=== PATIENT | female | born 1995 | race African-American/Black ===

== ENCOUNTER 2016-07-19 14:36 | Emergency (ER) | payer OTHER ==
[~2016-07-19] VITALS: Ht 154.9 cm; Wt 50.0 kg
[~2016-07-19 14:36] MED LIST: IBUP600 PO; NIFE1TAB85 PO; OXYC1SOL5 PO; PERI8.6T PO
[2016-07-19 14:38] VITALS: BP 141/68; PULSE 78; RESP 16; TEMP 98.2; O2SAT 98
[2016-07-19 17:37] LABS: BACTERIA, URINE MANY /hpf; BLOOD, URINE MOD (NEG); COMMENT (UR) CULTURE INDICATED; CULTURE IF INDICATED CULTURE INDICATED; GLUCOSE,URINE NEG (NEG); KETONE, URINE TRACE mg/dL (NEG); MUCUS URINE MANY /lpf (OCC); NITRITE,URINE POS (NEG); PH, URINE 5.5 (5.0-8.5); SQUAMOUS EPITHELIAL CELL URINE 9 /hpf (0-5); URINE COLOR YELLOW (YELLW/STRAW)
[2016-07-19] MEDS ORDERED: CEPH-460 PO (18:26)
--- NOTE | 2016-07-19 18:27 | PD ---
HPI Chief Complaint: Complaint Time Seen by Provider: 17:30 Travel History International Travel<30 days: No Contact w/Intl Traveler<30days: No Traveled to known affect area: No History of Present Illness HPI 20 year-old woman presents to the emergency department complaining of lower abdominal discomfort is worse after she urinates. She never really have any dysuria. Skin ongoing for the past week or so. She's noticed some dark color urine but no other urinary changes. She has had some intermittent vaginal spotting and vaginal discharge. Last initial period was July 05. She sexually active with one male partner. She otherwise has been feeling generally well and healthy. No other complaints. History Past Medical History Medical History: Denies Significant Hx Tetanus Vaccination: < 5 Years : 3 Para: 0 Social History Alcohol Use: No Tobacco Use: No Allergies-Medications (Allergen,Severity, Reaction): Coded Allergies: Flagyl (Verified Adverse Reaction, Intermediate, hives, 07/19/16) Reported Meds & Prescriptions Reported Meds & Active Scripts Active No Active Prescriptions or Reported Medications Review of Systems Except as stated in HPI: all other systems reviewed are Neg Physical Exam Narrative GENERAL: Well-appearing 20 year-old woman, no acute distress. SKIN: Focused skin assessment warm/dry. CARDIOVASCULAR: Regular rate and rhythm. No murmur appreciated. RESPIRATORY: No accessory muscle use. Clear to auscultation. Breath sounds equal bilaterally. GASTROINTESTINAL: Abdomen soft, non-tender, nondistended. Hepatic and splenic margins not palpable. MUSCULOSKELETAL: No obvious deformities. No clubbing. No cyanosis. No edema. NEUROLOGICAL: Awake and alert. No obvious cranial nerve deficits. Motor grossly within normal limits. Normal speech. PSYCHIATRIC: Appropriate mood and affect; insight and judgment normal. GENITOURINARY: Normal external genitalia without lesions or erythema. Vaginal vault without blood or drainage. Cervical os was closed without drainage. No cervical motion tenderness. Uterus nontender and nonenlarged. Bilateral adnexa nontender without masses. Data Data Last Documented VS Vital Signs Date Time Temp Pulse Resp B/P Pulse Ox O2 Delivery O2 Flow Rate FiO2 07/19/16 14:38 98.2 78 16 141/68 98 Orders Urinalysis - C+S If Indicated (07/19/16 17:20) Ed Urine Pregnancytest Poc (07/19/16 17:20) Urine Culture (07/19/16 17:25) Gc And Chlamydia Pcr (07/19/16 17:46) Wet Prep Profile (07/19/16 17:46) Labs Laboratory Tests Test 07/19/16 07/19/16 17:25 17:55 Urine Color YELLOW Urine Turbidity HAZY Urine pH 5.5 Urine Specific [place] 1.023 Urine Protein 30 mg/dL Urine Glucose (UA) NEG mg/dL Urine Ketones TRACE mg/dL Urine Occult Blood MOD Urine Nitrite POS Urine Bilirubin NEG Urine Urobilinogen LESS THAN 2.0 MG/DL Urine Leukocyte Esterase LARGE Urine RBC 20 /hpf Urine WBC 172 /hpf Urine Squamous Epithelial 9 /hpf Cells Urine Bacteria MANY /hpf Urine Mucus MANY /lpf Microscopic Urinalysis Comment CULTURE INDICATED Clue Cells (Wet Prep) PRESENT Vaginal Trichomonas (Wet Prep) PRESENT Vaginal Yeast (Wet Prep) NONE SEEN MDM Medical Decision Making Medical Screen Exam Complete: Yes Emergency Medical Condition: Yes Interpretation(s) UA: Pyuria, hematuria, many bacteria, positive nitrites. Wet prep positive for clue cells, and Trichomonas. Differential Diagnosis UTI, cervicitis, vaginitis, other Narrative Course Medical decision making 20 year-old woman presents emergent department with lower abdominal discomfort, urinary discomfort, vaginal discharge. UA suggestive of cystitis however she is positive for trichomonas. We'll recommend empiric treatment for Trichomonas and cervicitis, antibiotics for cystitis. Diagnosis Primary Impression: Acute cystitis Additional Impression: Trichomoniasis Additional Instructions: Take Keflex as prescribed. Followup with your camp dishwasher for routine LEGAL MANAGER care and followup testing for other sexually transmitted infection such as HIV, hepatitis, syphilis. Any sexual partners you have should be tested and treated as well. You should not have sex until you have no symptoms, and your partners tested and treated as well. Med/Other Pt SpecificInfo: Prescription(s) given Scripts Cephalexin (Keflex)500 Mg [id number] Mg PO Q8H 7 Days Ref 0 Prov:Ashish Milian MD 07/19/16 Disposition: 01 DISCHARGE HOME Condition: Stable Ashish Milian MD Jul 19, 2016 18:27
[2016-07-19] MEDS ORDERED: predniSONE 20 MG TAB PO ONE (18:30)
[2016-07-19] MEDS ORDERED: metroNIDAZOLE 500 MG TAB PO ONE (18:30)
[2016-07-19 21:05] VITALS: BP 121/66; TEMP 98.7
[2016-07-19 21:13] LABS: CHLAMYDIA PCR NOT DETECTED (NOT DETECT); NEISSERIA PCR NOT DETECTED (NOT DETECT)
== END 2016-07-19 21:24 | disposition home or self-care (01) ==
LOC: NEPC 14:36
DX: N30.00 Acute cystitis without hematuria (principal); B96.1 Klebsiella pneumoniae [K. pneumoniae] as the cause of diseases classified elsewhere; A59.9 Trichomoniasis, unspecified
CPT/HCPCS: 81001; 84703; 87077; 87086; 87186; 87210; 87491; 87591; 99283; J7512